=== PATIENT | female | born 1970 | race Caucasian/White ===

== ENCOUNTER → 2021-10-14 | Outpatient (CLI) | payer OTHER ==
[~2021-10-14] MED LIST: CYCLOBENZAPRINE10 MG PO; NAPROSYN500 MG PO
== END ==
LOC: KOH-I 14:12
DX: H70.91 Unspecified mastoiditis, right ear (principal)
CPT/HCPCS: 70120

== ENCOUNTER → 2021-10-19 | Outpatient (CLI) | payer OTHER | LOC: KOH-I 09:26 | DX: H70.91 Unspecified mastoiditis, right ear (principal); R19.02 Left upper quadrant abdominal swelling, mass and lump; K76.0 Fatty (change of) liver, not elsewhere classified | CPT/HCPCS: 70480; 76700 ==